=== PATIENT | female | born 1965 | race Caucasian/White ===

== ENCOUNTER 2020-01-09 09:16 | Outpatient (CLI) | payer BC, SELFPAY ==
--- NOTE | 2020-01-09 11:00 | NEURO_ITS ---
Patient Number: [id number] Impression: # Complains of numbness of right sided toes. # Normal nerve conduction study including F-waves. # Normal needle/EMG exam. # Clinical correlation recommended. Nerve Conduction Studies Anti Sensory Summary Table Stim Site NR Peak (ms) P-T Amp (?V) Site1 Site2 Delta-P (ms) Dist (cm) Ke (m/s) Right Sup Fibular Anti Sensory (Ant Lat Mall) 14 cm 3.6 5.8 14 cm Ant Lat Mall 3.6 16.0 44 Right Sural Anti Sensory (Lat Mall) Calf 4.1 11.4 Calf Lat Mall 4.1 17.0 41 Motor Summary Table Stim Site NR Onset (ms) O-P Amp (mV) Site1 Site2 Delta-0 (ms) Dist (cm) Ke (m/s) Right Peroneal Motor (Vastus Med) Ankle 5.1 3.0 Popit Ankle 7.9 37.0 47 Popit 13.0 2.4 Right Tibial Motor (Abd Bhardwaj Brev) Ankle 5.2 2.3 Knee Ankle 7.8 42.0 54 Knee 13.0 2.3 F Wave Studies NR F-Lat (ms) L-R F-Lat (ms) Right Peroneal (Mrkrs) (EDB) 53.51 Right Tibial (Mrkrs) (Abd Hallucis) 55.20 EMG Side Muscle Nerve Root Ins Act Fibs Amp Dur Recrt Comment Right AntTibialis Dp Br Fibular L4-5 Nml Nml Nml Nml Nml Right Gastroc Tibial S1-2 Nml Nml Nml Nml Nml Right Fibularis Long Sup Br Fibular L5-S1 Nml Nml Nml Nml Nml Right Flex Dig Long Tibial L5-S2 Nml Nml Nml Nml Nml Right Ext Dig Brev Dp Br Fibular L5, S1 Nml Nml Nml Nml Nml Right QuadratusFem QuadFemoris L4-5, S1 Nml Nml Nml Nml Nml MTDD
== END 2020-01-09 09:17 | disposition home or self-care (01) ==
PROVIDERS: PCP Family Medicine; Visit Provider Podiatrist Foot & Ankle Surgery
DX: G57.51 Tarsal tunnel syndrome, right lower limb (principal); M54.10 Radiculopathy, site unspecified
CPT/HCPCS: 95886; 95908

== ENCOUNTER 2020-10-30 09:22 | Outpatient (CLI) | payer BC, SELFPAY ==
--- NOTE | ~2020-10-30 | US_ITS ---
EXAMINATION: US thyroid DATE: 10/30/2020 09:53 INDICATION: Nontoxic single thyroid nodule. TECHNIQUE: Multiple ultrasound images of the thyroid were obtained. COMPARISON: None. FINDINGS: The right thyroid lobe measures 4.7 x 2.3 x 1.7 cm. The left thyroid lobe measures 4.1 x 1.7 x 1.3 c m. In the right thyroid lobe, there is an 8 mm solid, hypoechoic, oawpw-ejis-ibcm nodule with lobula r margin without echogenic foci (TI-RADS TR4). In the left thyroid lobe, there is a 13 mm solid, hypo echoic, syjsj-ifpk-gklk nodule with lobulated margin without echogenic foci (TR4). In the right thyro id isthmus, there is a 15 mm mixed cystic and solid, hypoechoic, nzhcm-[id number]-gynj nodule with smooth m argin without echogenic foci (TR3). IMPRESSION: 1. Thyroid nodules. Thyroid ultrasound is recommended in one year. Reviewed, dictated and finalized at location A. [employer]
== END 2020-10-30 09:23 | disposition home or self-care (01) ==
LOC: ANHIMG 09:23
PROVIDERS: PCP Family Medicine; Visit Provider Otolaryngology
DX: E04.2 Nontoxic multinodular goiter (principal)
CPT/HCPCS: 76536

== ENCOUNTER 2021-04-17 12:40 | Outpatient (CLI) | payer BC, SELFPAY ==
--- NOTE | ~2021-04-17 | XR_ITS ---
EXAMINATION: XR chest 2V 04/17/2021 13:00 INDICATION: Solitary pulmonary nodule PROCEDURE: 2 view chest COMPARISON: No prior studies for comparison. FINDINGS: The lungs are clear. The cardiomediastinal silhouette is within normal limits. There are no pleural effusions. There is no pneumothorax suspected. IMPRESSION: 1: NO ACUTE CARDIOPULMONARY DISEASE. Reviewed, dictated and finalized at location A.
--- NOTE | 2021-04-17 17:57 | P.PCNPFT_ITS ---
PFT Procedure Performed PFT Procedure Performed Spirometry with Pre/Post Bronchodilator Plethysmography (Lung Vol) Diffusing Cap (DLCO) Flow Vol Loop PFT Interpretation This is a pulmonary function test with pre and post-bronchodilator spirometry, plethysmography and diffusing capacity. The test was performed and results interpreted in accordance with the 2019 and 2005 ATS/ERS Task Force guidelines respectively using the Global Lung Function Initiative-2012 reference equations. Patient demonstrated good effort and cooperation. Reproducibility criteria were met. The quality of the pre bronchodilator spirometry maneuver was Grade A and post bronchodilator spirometry maneuver was Grade A. Findings: Spirometry: There is decreased maximal expiratory airflow at all lung volumes with concave expiratory flow tracing. The contour of the inspiratory flow tracing is normal. The pre bronchodilator FVC is 2.58 L, 76% predicted. The pre bronchodilator FEV1 is 1.17 L, 43% predicted. The FEV1: FVC ratio is 45%. Post bronchodilator FVC is 2.92 L, representing a 13% increase. The post bronchodilator FEV1 is 1.35 L, representing a 16% increase. Plethysmography: The total lung capacity is 6.96 L, 137% predicted. The functional residual capacity is 4.93 L, 173% predicted. The residual volume is 3.62 L, 195% predicted. Diffusing capacity: The absolute diffusion capacity is 15.3, 69% predicted. The diffusing capacity corrected for alveolar volume is 3.45, 76% predicted. Impression: There is a severe obstructive abnormality with significant improvement after inhaling a single dose of albuterol. The increase in residual volume is consistent with air trapping from an obstructive abnormality. Hyper inflation is present is demonstrated by the increase in functional residual capacity and total lung capacity and is consistent with an obstructive abnormality. The absolute diffusing capacity is mildly decreased and normalizes when corrected for alveolar volume. There are no prior studies for comparison
== END 2021-04-17 12:41 | disposition home or self-care (01) ==
PROVIDERS: PCP Family Medicine; Visit Provider Family Medicine
DX: R91.1 Solitary pulmonary nodule (principal); R06.02 Shortness of breath; R94.2 Abnormal results of pulmonary function studies
CPT/HCPCS: 71046; 94060; 94726; 94729